=== PATIENT | male | born 1965 | race Two or more races ===

== ENCOUNTER → 2020-09-12 | Outpatient (CLI) | payer BC ==
--- NOTE | 2020-09-12 12:32 | CONS ---
CONSULTATION DATE OF SERVICE: 09/12/2020 This 55-year-old gentleman has been [facility] for possible obstructive sleep apnea-hypopnea syndrome. HISTORY OF PRESENT ILLNESS/SLEEP-WAKE EVALUATION: Patient usual sleep schedule on weekdays from 8 p.m. to 3 a.m.; on weekends from 8:30 or 9 p.m. to 5 or 6 a.m. Usually no problems with falling asleep. No TV in bedroom. He sleeps on the side position with very loud snoring and witnessed episodes of stopped breathing during sleep by his . He wakes up from sleep with a choking, nocturia, dry mouth, gasping for air 4 times at least. Positive history of restless legs while falling asleep and symptoms of restless legs very significant, according to patient. In the morning he wakes up tired, has difficulties to pay attention, falling asleep during the day, worries about his sleep, has problems with memory, concentration, irritability, depression, anxiety, sexual dysfunction. [place] Sleepiness Scale significantly increased to 18. He takes one nap at 1 p.m., usually no vivid dreams during naps. He does not feel refreshed after nap. Questionable history of hypnagogic hallucinations at night. PAST MEDICAL HISTORY: History of episodes of depression and anxiety, acid reflux. Recently the patient was told about possibly hypothyroidism, carpal tunnel syndrome, right hand arthritis. PAST SURGICAL HISTORY: Surgery on right side for carpal tunnel syndrome. FAMILY HISTORY: Hypertension, heart problems, stroke. SOCIAL HISTORY: Negative for smoking or using alcohol. REVIEW OF SYSTEMS: Multiple awakenings from sleep, significant excessive daytime sleepiness, restless leg symptoms. PHYSICAL EXAMINATION: GENERAL: gentleman without distress. VITAL SIGNS: BP 154/92, HR 84, RR 15, height 5 feet 9 inches, weight 291.2, temperature 97.6, oxygen saturation on room air 94%. HEENT: PERRLA, EOMI. Oropharynx extremely low position of soft palate. Mallampati 4. Extremely wide neck 21 inches in circumference. NECK: Supple, no JVD. Thyroid is not palpable. LUNGS: Clear to percussion and to auscultation. Good air exchange. No wheezing or rhonchi. HEART: S1, S2 regular. No murmurs, gallops, or rubs. ABDOMEN: Obese. EXTREMITIES: No clubbing or cyanosis. IT SECURITY ARCHITECT: Awake, alert, and oriented X3. Cranial nerves 2 to 7 intact. There is no fasciculation or atrophy. noted. No focal deficits observed. IMPRESSION: 1. Loud snoring, witnessed episodes of stopped breathing during the sleep, extremely low position of soft palate, Mallampati IV, extremely wide neck 21 inches, sleepiness, obstructive sleep apnea-hypopnea syndrome. Will be on control with CPAP. We will re-evaluate patient symptoms of excessive sleepiness for differential diagnosis with additional diagnosis of narcolepsy without cataplexy. 2. Obesity, body mass index 42.93. 3. Significant excessive daytime sleepiness. [place] Sleepiness Scale of 18. Question of positive history of hypnagogic hallucinations. 4. History of episodes of depression and anxiety. 5. Right hand arthritis. 6. Acid reflux. 7. History of significant restless leg symptoms. 8. History of hypothyroidism. 9. Status post surgery on right hand for carpal tunnel syndrome. PLAN: 1. Home sleep apnea test for evaluation of patient's breathing during sleep. 2. CPAP/BiPAP titration if sleep study confirms obstructive sleep apnea-hypopnea syndrome. 3. Preferable position during sleep on the side. 4. No driving if patient feels any sleepiness. 5. I will see patient for follow up visit to explain results of testing and following plan. 6. Monitoring of blood pressure, low-sodium diet. 7. Please check iron profile, including ferritin level. Low level of iron may increase risk for restless legs and periodic limb movements. The patient may need additional evaluation by polysomnogram for restless legs and possibly leg movements in the future depending from clinical picture while he will be on treatment with CPAP. Thank you very much for referring this patient for consultation. Sincerely, Sonu Giraldo MD, PhD, FAASM Diplomat of [place] [employer] [place] [employer] Technical Program Manager of [facility] [place] MMODL / IJN: [id number] /
== END ==
LOC: SLEEP 10:55
PROVIDERS: ATTEND Internal Medicine
DX: G47.33 Obstructive sleep apnea (adult) (pediatric) (principal); E66.9 Obesity, unspecified; Z68.41 Body mass index [BMI] 40.0-44.9, adult; G47.10 Hypersomnia, unspecified; M19.041 Primary osteoarthritis, right hand; K21.9 Gastro-esophageal reflux disease without esophagitis; Z87.39 Personal history of other diseases of the musculoskeletal system and connective tissue; Z86.39 Personal history of other endocrine, nutritional and metabolic disease
CPT/HCPCS: 99211

== ENCOUNTER → 2020-11-08 | Outpatient (CLI) | payer BC ==
[2020-11-09 00:09] LABS: African American GFR (CKD) 97.1 (60.0-200.0); Albumin 4.5 g/dL (3.80-4.90); Albumin/Globulin Ratio 2.25 (1.60-3.17); Anion Gap 13.5 mmol/L (4.00-12.00); Calcium 9.2 mg/dL (8.7-10.3); Carbon Dioxide 29.5 mmol/L (21.6-31.8); Chol/HDL Ratio 4.89; LDL Cholesterol,Calculated 146.6 mg/dL (0.0-131.0); Non-African American GFR(CKD) 83.8 (60.0-200.0); Potassium 4.7 mmol/L (3.5-5.5); Prostate Specific Antigen 0.2 ng/mL (0.0-3.5); Total Bilirubin 0.4 mg/dL (0.3-1.2); Total Protein 6.5 g/dL (6.2-8.2); VLDL Calculation 32.4 mg/dL (5.00-40.00)
== END | disposition home or self-care (01) ==
LOC: LABWHC1 10:13
PROVIDERS: ATTEND Internal Medicine
DX: Z00.00 Encounter for general adult medical examination without abnormal findings (principal); N40.1 Benign prostatic hyperplasia with lower urinary tract symptoms; M15.0 Primary generalized (osteo)arthritis
CPT/HCPCS: 36415; 80053; 80061; 84153

== ENCOUNTER 2020-11-26 13:57 | Inpatient (IN) | payer BC ==
[2020-11-26] MEDS ORDERED: SODIUM CHLORIDE 0.9% 500 ML 500 ML IV STA (14:10)
[2020-11-26 14:42] LABS: Basophils # (A) 0.1 k/uL (0-0.2); Basophils % (A) 1 %; Eosinophils # (A) 0.4 k/uL (0-0.7); Eosinophils % (A) 3 %; HCT 45.9 % (39.0-53.0); HGB 15.4 gm/dL (13.0-17.5); Lymphocytes # (A) 1.8 k/uL (1.0-4.8); Lymphocytes % (A) 17 %; MCH 33.2 pg (25.0-35.0); MCHC 33.5 g/dL (31.0-37.0); Mean Platelet Volume 8.1; Monocytes # (A) 0.7 k/uL (0-1.0); Monocytes % (A) 7 %; Neutrophils # (A) 7.7 k/uL (1.3-7.7); Neutrophils % (A) 72 %; Platelet Count 240 k/uL (150-450); RBC 4.64 m/uL (4.30-5.90); RDW 13.5 % (11.5-15.5); WBC 10.7 k/uL (3.8-10.6)
--- NOTE | 2020-11-26 14:53 | ED ---
General Adult HPI - General Chief complaint: Syncope Stated complaint: syncope Time Seen by Provider: 11/26/20 14:01 Source: patient, EMS Mode of arrival: EMS Limitations: no limitations - History of Present Illness Initial comments: Patient is a 55-year-old male with history of arthritis, obstructive sleep apnea, presenting to the emergency department via EMS after having a syncopal event at his PCPs office. Patient states he was at his doctor's office today secondary to falling on his abdomen yesterday. Patient states he was attempting to start a dirt bike when his foot slipped and he fell forward, his belly landed on a trailer that was close to him. He has been having intermittent abdominal pain since yesterday. He states he did not feel dizzy or lightheaded at his doctor's office today. He does not remember losing consciousness. According to witnesses he was unconscious for about 3 minutes. He did not hit his head. Patient denies having any other complaints of pain other than some left lower quadrant abdominal pain where he fell. He denies any chest pain or shortness of breath. He denies any fevers or chills. He states he's been eating and drinking as normal. He denies any nausea or vomiting, no diarrhea. He denies having a cardiac history. He denies being a smoker, does not drink alcohol or any other drug use. He has no further complaints at this time. Upon arrival to the ER, he is at 93% on room air, rest of vitals are normal. - Related Data Home Medications Medication Instructions Recorded Confirmed Diclofenac Sodium [Voltaren] 75 mg PO BID PRN 11/26/20 11/26/20 LORazepam [Ativan] 1 mg PO DAILY PRN 11/26/20 11/26/20 cloNIDine HCL 0.1 mg PO BID 11/26/20 11/26/20 Allergies Allergy/AdvReac Type Severity Reaction Status Date / Time No Known Allergies Allergy Verified 11/26/20 16:21 Review of Systems ROS Statement: Those systems with pertinent positive or pertinent negative responses have been documented in the HPI. ROS Other: All systems not noted in ROS Statement are negative. Past Medical History Additional Past Medical History / Comment(s): ARTHRITIS Past Surgical History: Orthopedic Surgery Past Psychological History: Anxiety Smoking Status: Never smoker Past Alcohol Use History: None Reported Past Drug Use History: None Reported General Exam - General Exam Comments Initial Comments: GENERAL: Patient is well-developed and well-nourished. Patient is nontoxic and in no acute distress. HEAD: Atraumatic, normocephalic. EYES: Pupils equal round and reactive to light, extraocular movements intact, sclera anicteric, conjunctiva are normal. Eyelids were unremarkable. ENT: TMs normal, nares patent, oropharynx clear without exudates. Moist mucous memb ranes. NECK: Normal range of motion, supple without lymphadenopathy or JVD. LUNGS: Unlabored respirations. Breath sounds clear to auscultation bilaterally and equal. No wheezes rales or rhonchi. HEART: Regular rate and rhythm without murmurs, rubs or gallops. ABDOMEN: Patient's abdomen is large, he does have some bruising noted to the left lower quadrant when he fell yesterday, he has painful in this area. No other areas of pain noted. Normoactive bowel sounds. No guarding, no rebound. No masses appreciated. : Deferred MUSCULOSKELETAL: Normal extremities with adequate strength and normal range of motion, no pitting or edema. No clubbing or cyanosis. NEUROLOGICAL: Patient is alert and oriented x 3. Motor and sensory are also intact. Cranial nerves II through XII grossly intact. Symmetrical smile. Normal speech, normal gait. PSYCH: Normal mood, normal affect. SKIN: Warm, Dry, normal turgor, no rashes or lesions noted. Limitations: no limitations Course Vital Signs 11/26/20 11/26/20 11/26/20 13:59 15:39 15:40 Temperature 98 F Pulse Rate 96 Pulse Rate [ 94 93 Life Claims Examiner ] Respiratory 18 18 18 Rate Blood Pressure 139/87 Blood Pressure 149/94 [Right Arm Sitting] Blood Pressure [Right Arm Standing] Blood Pressure 143/99 [Right Arm Supine] O2 Sat by Pulse 93 L 92 L 93 L Oximetry 11/26/20 15:41 Temperature Pulse Rate Pulse Rate [ 103 H Life Claims Examiner ] Respiratory 18 Rate Blood Pressure Blood Pressure [Right Arm Sitting] Blood Pressure 134/86 [Right Arm Standing] Blood Pressure [Right Arm Supine] O2 Sat by Pulse 93 L Oximetry EKG Findings - EKG Comments: EKG Findings:: Normal sinus rhythm, incomplete RBBB, T-wave abnormalities in leads 2, 3, aVF and V3 through V6. There are no prior EKGs to compare. Ventricular rate 97, ME 178, QT 378. EKG reviewed by Dr. Cantu. Medical Decision Making - Medical Decision Making He is a 55-year-old male with history of obstructive sleep apnea, presenting after having a 3 minute syncopal event at his doctor's office today. No fevers, he denies any dizziness or lightheadedness. He does have some mild lower abdominal pain after falling on his trailer yesterday. No chest pain. He denies any shortness of breath. Patient has been standing at 93% on room air, he states he does have a CPAP but does not use this. Patient's labs are stable, troponin is 0.013. Rapid Covid is negative. CT of the abdomen and pelvis shows no acute abnormality, chest x-ray is normal. Patient's EKG had many T-wave inversions, he had no previous EKG to compare to. Given patient's syncopal event today, severe obstructive sleep apnea and EKG changes, recommended admission for cardiac consult. Patient was accepted by Dr. Mckeon. Cardiac consult. Patient is in agreement with this plan of care. Case discussed with Dr. Cantu. - Lab Data Result diagrams: 11/26/20 14:33 11/26/20 15:21 Lab Results 11/26/20 11/26/20 11/26/20 Range/Units 14:33 14:33 15:21 WBC 10.7 H (3.8-10.6) k/uL RBC 4.64 (4.30-5.90) m/uL Hgb 15.4 (13.0-17.5) gm/dL Hct 45.9 (39.0-53.0) % MCV 99.0 (80.0-100.0) fL MCH 33.2 (25.0-35.0) pg MCHC 33.5 (31.0-37.0) g/dL RDW 13.5 (11.5-15.5) % Plt Count 240 (150-450) k/uL MPV 8.1 Neutrophils % 72 % Lymphocytes % 17 % Monocytes % 7 % Eosinophils % 3 % Basophils % 1 % Neutrophils # 7.7 (1.3-7.7) k/uL Lymphocytes # 1.8 (1.0-4.8) k/uL Monocytes # 0.7 (0-1.0) k/uL Eosinophils # 0.4 (0-0.7) k/uL Basophils # 0.1 (0-0.2) k/uL PT 10.2 (9.0-12.0) sec INR 0.9 (<1.2) APTT 23.4 (22.0-30.0) sec Sodium 137 (137-145) mmol/L Potassium 4.1 (3.5-5.1) mmol/L Chloride 99 (98-107) mmol/L Carbon Dioxide 31 H (22-30) mmol/L Anion Gap 7 mmol/L BUN 18 (9-20) mg/dL Creatinine 0.92 (0.66-1.25) mg/dL Est GFR (CKD-EPI)AfAm >90 (>60 ml/min/1.73 sqM) Est GFR (CKD-EPI)NonAf >90 (>60 ml/min/1.73 sqM) Glucose 86 (74-99) mg/dL Calcium 8.6 (8.4-10.2) mg/dL Total Bilirubin 0.4 (0.2-1.3) mg/dL AST 25 (17-59) U/L ALT 17 (4-49) U/L Alkaline Phosphatase 77 (38-126) U/L Troponin I (0.000-0.034) ng/mL Total Protein 6.1 L (6.3-8.2) g/dL Albumin 3.7 (3.5-5.0) g/dL Coronavirus (PCR) (Not Detectd) 11/26/20 11/26/20 Range/Units 15:21 15:44 WBC (3.8-10.6) k/uL RBC (4.30-5.90) m/uL Hgb (13.0-17.5) gm/dL Hct (39.0-53.0) % MCV (80.0-100.0) fL MCH (25.0-35.0) pg MCHC (31.0-37.0) g/dL RDW (11.5-15.5) % Plt Count (150-450) k/uL MPV Neutrophils % % Lymphocytes % % Monocytes % % Eosinophils % % Basophils % % Neutrophils # (1.3-7.7) k/uL Lymphocytes # (1.0-4.8) k/uL Monocytes # (0-1.0) k/uL Eosinophils # (0-0.7) k/uL Basophils # (0-0.2) k/uL PT (9.0-12.0) sec INR (<1.2) APTT (22.0-30.0) sec Sodium (137-145) mmol/L Potassium (3.5-5.1) mmol/L Chloride (98-107) mmol/L Carbon Dioxide (22-30) mmol/L Anion Gap mmol/L BUN (9-20) mg/dL Creatinine (0.66-1.25) mg/dL Est GFR (CKD-EPI)AfAm (>60 ml/min/1.73 sqM) Est GFR (CKD-EPI)NonAf (>60 ml/min/1.73 sqM) Glucose (74-99) mg/dL Calcium (8.4-10.2) mg/dL Total Bilirubin (0.2-1.3) mg/dL AST (17-59) U/L ALT (4-49) U/L Alkaline Phosphatase (38-126) U/L Troponin I 0.013 (0.000-0.034) ng/mL Total Protein (6.3-8.2) g/dL Albumin (3.5-5.0) g/dL Coronavirus (PCR) Not Detected (Not Detectd) Disposition Clinical Impression: Syncope, EKG abnormalities, FAY (obstructive sleep apnea) Disposition: ADMITTED IP TO THIS [facility] Condition: Stable Is patient prescribed a controlled substance at d/c from ED?: No Referrals: Leah Reeves MD [Primary Care Provider] - 1-2 days Decision Date: 11/26/20 Decision Time: 16:27
[2020-11-26 15:16] LABS: INR 0.9 (<1.2); Partial Thromboplastin Time 23.4 sec (22.0-30.0); Prothrombin Time 10.2 sec (9.0-12.0)
[2020-11-26] MEDS ORDERED: KETOROLAC 15 MG/ML 1 ML VIAL IVP STA (15:19)
--- NOTE | 2020-11-26 15:45 | CT ---
EXAMINATION TYPE: CT abdomen pelvis w con DATE OF EXAM: 11/26/2020 COMPARISON: None. HISTORY: Left sided abdominal bruising from fall. CT DLP: 2648.5 mGycm, Automated Exposure Control for Dose Reduction was Utilized. CONTRAST: CT scan of the abdomen and pelvis is performed without oral but with IV Contrast, patient injected wi th 100 mL of Isovue 300. FINDINGS: LUNG BASES: Suspect some right-sided gynecomastia partially imaged on the most superior axial images. There is prominent mid to lower thoracic right sided 1.4 x 0.8 cm nodule or lymph node axial image 3 noted. Consider nonemergent follow-up ultrasound evaluation. LIVER/GB: No significant abnormality is appreciated. PANCREAS: No significant abnormality is seen. SPLEEN: No significant abnormality is seen. ADRENALS: No significant abnormality is seen. KIDNEYS: Accessory left renal artery. BOWEL: No significant abnormality is seen. PROSTATE/SEMINAL VESICLES: No gross abnormality seen. LYMPH NODES: No greater than 1cm abdominal or pelvic lymph nodes are appreciated. OSSEOUS STRUCTURES: Vacuum disc phenomenon with mild to moderate disc space narrowing L4-L5 and L5-S1 levels. OTHER: Moderate sized umbilical hernia containing fat and tiny mesenteric vessel. Mild calcified plaq ue of the aorta extends into branch vessels IMPRESSION: No acute posttraumatic finding.
[2020-11-26 15:53] LABS: ALT 17 U/L (4-49); AST 25 U/L (17-59); African American GFR (CKD) >90 (>60 ml/min/1.73 sqM); Albumin 3.7 g/dL (3.5-5.0); Alkaline Phosphatase 77 U/L (38-126); Anion Gap 7 mmol/L; Blood Urea Nitrogen 18 mg/dL (9-20); Calcium 8.6 mg/dL (8.4-10.2); Carbon Dioxide 31 mmol/L (22-30); Chloride 99 mmol/L (98-107); Glucose 86 mg/dL (74-99); Non-African American GFR(CKD) >90 (>60 ml/min/1.73 sqM); Potassium 4.1 mmol/L (3.5-5.1); Sodium 137 mmol/L (137-145); Total Bilirubin 0.4 mg/dL (0.2-1.3); Total Protein 6.1 g/dL (6.3-8.2)
--- NOTE | 2020-11-26 15:54 | XR ---
EXAMINATION TYPE: XR chest 2V DATE OF EXAM: 11/26/2020 COMPARISON: NONE HISTORY: Syncope TECHNIQUE: Frontal and lateral views of the chest are obtained. FINDINGS: There is no focal air space opacity, pleural effusion, or pneumothorax seen. The cardiac silhouette size is within normal limits. There are overlying leads. The osseous structures are intac t. IMPRESSION: No acute cardiopulmonary process.
[2020-11-26] MEDS ORDERED: MORPHINE SULFATE 2 MG/ML SYRINGE IVP ONE (16:02)
[2020-11-26] MEDS ORDERED: ACETAMINOPHEN TAB 325 MG TAB PO PRN (16:12)
[2020-11-26] MEDS ORDERED: IBUPROFEN 400 MG TAB PO PRN (16:12)
[2020-11-26] MEDS ORDERED: ONDANSETRON 4 MG/2 ML VIAL IVP PRN (16:12)
[2020-11-26] MEDS ORDERED: NALOXONE 0.4 MG/ML 1 ML VIAL IV PRN (16:12)
--- NOTE | 2020-11-26 19:39 | P.HPIM ---
History of Present Illness This is a pleasant 55 years old male with no significant past medical history presents with some papillary-like clinical picture. 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 He decided to go and visit his PCP today Dr. Reilly while he was sitting in the chair he passed out for about 5 minutes, he could not remember but we can often people around him trying to help him. Associated with sweating but there was no seizure-like activity or shakiness. No postictal confusion. No urine or bowel incontinence, no tongue biting. Also there is no associated chest pain, palpitations or dizziness. Patient denies abdominal pain other than one mentioned above from trauma. No nausea vomiting or change in urine or bowel habits. No dysuria. He denies smoking, alcohol or illicit drugs He follows up with Dr. Reilly only On admission his mildly hypoxic with oxygen saturation 92% on room air, slightly tachycardic at 93. Leukocytosis slightly up at 10.7, and BMP showing high carbon dioxide 31. Rest of labs are unremarkable. Running 2 are negative with 0.013 and 0.012. Cordarone over as not detected EKG showed normal sinus rhythm with incomplete right bundle branch block, QTC of 480, consider anterolateral ischemia Chest x-ray: No acute abnormality CT of the abdomen and pelvis: No acute posttraumatic findings In the emergency room patient received Toradol, started on ibuprofen and morphine. Also received 500 mL of normal saline Patient is admitted to the general medical floor with cardiology team been consulted Review of Systems CONSTITUTIONAL: No fever, no malaise, no fatigue. HEENT: No recent visual problems or hearing problems. Denied any sore throat. CARDIOVASCULAR: No orthopnea, PND, no palpitations, no syncope. PULMONARY: No shortness of breath, no cough, no hemoptysis. GASTROINTESTINAL: No diarrhea, no nausea, no vomiting, no abdominal pain. Normoactive bowel sounds. NEUROLOGICAL: No headaches, no weakness, no numbness. HEMATOLOGICAL: Denies any bleeding or petechiae. GENITOURINARY: Denies any burning micturition, frequency, or urgency. MUSCULOSKELETAL/RHEUMATOLOGICAL: Denies any joint pain, swelling, or any muscle pain. ENDOCRINE: Denies any polyuria or polydipsia. Past Medical History Additional Past Medical History / Comment(s): ARTHRITIS Past Surgical History: Orthopedic Surgery Past Psychological History: Anxiety Smoking Status: Never smoker Past Alcohol Use History: None Reported Past Drug Use History: None Reported Medications and Allergies Home Medications Medication Instructions Recorded Confirmed Type Diclofenac Sodium [Voltaren] 75 mg PO BID PRN 11/26/20 11/26/20 History LORazepam [Ativan] 1 mg PO DAILY PRN 11/26/20 11/26/20 History cloNIDine HCL 0.1 mg PO BID 11/26/20 11/26/20 History Allergies Allergy/AdvReac Type Severity Reaction Status Date / Time No Known Allergies Allergy Verified 11/26/20 16:21 Physical Exam Vitals: Vital Signs Temp Pulse Pulse Resp BP BP BP 11/26/20 18:54 98 F 100 18 134/86 11/26/20 18:32 100 18 134/86 11/26/20 15:41 103 H 18 134/86 11/26/20 15:40 93 18 149/94 11/26/20 15:39 94 18 11/26/20 13:59 98 F 96 18 139/87 BP Pulse Ox 11/26/20 18:54 97 11/26/20 18:32 97 11/26/20 15:41 93 L 11/26/20 15:40 93 L 11/26/20 15:39 143/99 92 L 11/26/20 13:59 93 L Intake and Output 11/26/20 11/26/20 11/26/20 06:59 14:59 22:59 Other: Weight 136.078 kg GENERAL: The patient is alert and oriented x3, not in any acute distress. Well developed, well nourished. HEENT: Pupils are round and equally reacting to light. EOMI. No scleral icterus. No conjunctival pallor. Normocephalic, atraumatic. No pharyngeal erythema. No thyromegaly. CARDIOVASCULAR: S1 and S2 present. No murmurs, rubs, or gallops. PULMONARY: Chest is clear to auscultation, no wheezing or crackles. ABDOMEN: Soft, nontender, nondistended, normoactive bowel sounds. No palpable organomegaly. MUSCULOSKELETAL: No joint swelling or deformity. EXTREMITIES: No cyanosis, clubbing, or pedal edema. NEUROLOGICAL: Gross neurological examination did not reveal any focal deficits. SKIN: No rashes. No petechiae Results CBC & Chem 7: 11/26/20 14:33 11/26/20 15:21 Labs: Abnormal Lab Results - Last 24 Hours (Table) 11/26/20 11/26/20 Range/Units 14:33 15:21 WBC 10.7 H (3.8-10.6) k/uL Carbon Dioxide 31 H (22-30) mmol/L Total Protein 6.1 L (6.3-8.2) g/dL Assessment and Plan Assessment: Syncope, rule out cardiac causes and review of EKG changes with anterior lateral ischemia Acute hypoxic respiratory failure, rule out hypercapnic failure, obstructive sleep apnea or obesity hypoventilation syndrome Morbid obesity with BMI of 44.3 Fall with trauma to the left lower quadrant of the abdomen Hypertension Plan: This is a pleasant 55 years old male who presents with syncope. Rule out cardiac causes. Cardiology team were consulted, check echocardiogram, serial troponin. Start baby aspirin. Check orthostatic vitals as patient was working in regards an outside in hot water Change clonidine to metoprolol Check ABG, consider consult pulmonary service which could be done as inpatient or outpatient. Patient will need outpatient pulmonary function test Labs and medication were reviewed.. Continue same treatment. Continue with symptomatic treatment. Resume home medication. Monitor lytes and vitals. DVT and GI prophylaxis. Further recommendationsas per clinical course of the patient DVT prophylaxis: Subcutaneous heparin GI Prophylaxis: Pepcid PT/OT: Pending Prognosis is guarded
[2020-11-26] MEDS: MORPHINE SULFATE 4 MG/ML SYRINGE IVP PRN (20:18)
[2020-11-26] MEDS: METOPROLOL TARTRATE 12.5 MG TAB PO SCH (20:19)
[2020-11-26] MEDS: ASPIRIN 81 MG PO SCH (20:19)
[2020-11-26] MEDS: SODIUM CHLORIDE 0.9% 1,000 ML IV SCH (20:19)
[2020-11-26 21:39] LABS: ABG Base Excess 12.6 mmol/L; ABG HCO3 39 mmol/L (21-25); ABG Oxygen Saturation 94.3 % (94-97); ABG PO2 78 mmHg (83-108); ABG TCO2 41 mmol/L (19-24); Allen Test Performed? Yes
[2020-11-26 21:44] LABS: ABG PCO2 79 mmHg (35-45)
[2020-11-26] MEDS ORDERED: IPRATROPIUM-ALBUTEROL 3 ML NEB INHALATION PRN (23:29)
[2020-11-27 06:22] LABS: Appearance,Urine Clear (Clear); Bilirubin,Urine Negative (Negative); Blood,Urine Negative (Negative); Color,Urine Yellow; Glucose,Urine (UA) Negative (Negative); Ketones,Urine Negative (Negative); Leukocyte Esterase,Urine Negative (Negative); Nitrite,Urine Negative (Negative); PH, Urine 5.5 (5.0-8.0); Protein,Urine Negative (Negative); Specific Gravity,Urine 1.031 (1.001-1.035); Urobilinogen,Urine <2.0 mg/dL (<2.0)
[2020-11-27] MEDS: MORPHINE SULFATE 4 MG/ML SYRINGE IVP PRN ×3 (06:29→19:22)
[2020-11-27 08:05] LABS: Basophils # (A) 0.1 k/uL (0-0.2); Basophils % (A) 1 %; Eosinophils # (A) 0.3 k/uL (0-0.7); Eosinophils % (A) 3 %; HCT 48.9 % (39.0-53.0); HGB 15.9 gm/dL (13.0-17.5); Lymphocytes # (A) 1.5 k/uL (1.0-4.8); Lymphocytes % (A) 17 %; MCH 32.9 pg (25.0-35.0); MCHC 32.6 g/dL (31.0-37.0); MCV 100.9 fL (80.0-100.0); Macrocytosis Slight; Monocytes # (A) 0.5 k/uL (0-1.0); Monocytes % (A) 6 %; Neutrophils # (A) 6.5 k/uL (1.3-7.7); Neutrophils % (A) 73 %; Platelet Count 208 k/uL (150-450); RBC 4.85 m/uL (4.30-5.90); RDW 13.5 % (11.5-15.5)
[2020-11-27 08:10] LABS: African American GFR (CKD) >90 (>60 ml/min/1.73 sqM); Anion Gap 3 mmol/L; Blood Urea Nitrogen 17 mg/dL (9-20); Calcium 8.5 mg/dL (8.4-10.2); Carbon Dioxide 34 mmol/L (22-30); Chloride 102 mmol/L (98-107); Glucose 101 mg/dL (74-99); Non-African American GFR(CKD) >90 (>60 ml/min/1.73 sqM); Potassium 4.5 mmol/L (3.5-5.1); Sodium 139 mmol/L (137-145)
[2020-11-27] MEDS: FAMOTIDINE 20 MG/2 ML VIAL IV SCH ×2 (09:09→20:27)
[2020-11-27] MEDS: HEPARIN SODIUM,PORCINE/PF 5,000 UNIT/0.5 ML SYRINGE SQ SCH ×2 (09:10→20:27)
[2020-11-27] MEDS: ASPIRIN 81 MG PO SCH (09:10)
[2020-11-27] MEDS: SODIUM CHLORIDE 0.9% 1,000 ML IV SCH (09:10)
[2020-11-27] MEDS ORDERED: lisinopriL 10 MG TAB PO SCH (09:45)
[2020-11-27] MEDS: lisinopriL 10 MG TAB PO SCH ×2 (10:02→20:27)
[2020-11-27] MEDS: METOPROLOL TARTRATE 12.5 MG TAB PO SCH (10:03)
--- NOTE | 2020-11-27 10:52 | P.CRDCN ---
History of Present Illness History of present illness: HISTORY OF PRESENTING ILLNESS This is a pleasant 55-year-old male past medical history significant for hypertension, obstructive sleep apnea. 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 We have been asked to see in consultation for possible syncope, EKG changes. Patient states yesterday he tripped and fell on his left side of his abdomen, and has been having small area of redness, ecchymosis with abrasion and pain as left lower quadrant of his abdomen. Yesterday he went to his PCP office Dr. Reeves he was sitting in his chair and could not remember what happened but remembers waking up in the ambulance. He apparently was sitting on a chair and passed out. He denies chest pain, palpitaitons, dizziness, lightheadedness, seizures, no loss of bladder or bowel, no tongue biting. He denies tobacco use, alcohol use, illicit drug use. He denies history of diabetes, [place], stroke. On admission patient's blood pressure 139/87, heart rate 96, afebrile, 92% on room air was placed on 2 L nasal cannula. Orthostatic vital signs were completed yesterday around 7:30 PM which were negative. DIAGNOSTICS EKG reveals sinus rhythm, heart rate 97, T wave inversions in inferior leads, and anterior leads. CT of the abdomen and pelvis with no acute posttraumatic finding. Prominent mid to low thoracic right sided nodule lymph node noted, moderate size umbilical hernia containing fat and tiny mesenteric vessel noted. Telemetry tracings indicate patient in sinus mechanism, heart rate 80s to 90s, occasional low 100s. Does have an episode of bradycardia in the night around 11:30 PM heart rate in the 40s. Chest xray no acute cardiopulmonary process Laboratory reviewed,Troponin negative x 3, WBC 9, hemoglobin 5.9, platelets 208, sodium 139, potassium 4.5, serum creatinine 0.68, UA negative, Current cardiac medications include clonidine 0.1 mg twice a day, REVIEW OF SYSTEMS At the time of my exam: CONSTITUTIONAL: Denies fever or chills. CARDIOVASCULAR: Denies chest pain, shortness of breath, orthopnea, PND or palpitations. RESPIRATORY: Denies cough. GASTROINTESTINAL:+LLQ abdominal pain Denies diarrhea, constipation, nausea or vomiting. MUSCULOSKELETAL: Denies myalgias. NEUROLOGIC: +syncope Denies numbness, tingling, headacbe or weakness. ENDOCRINE: Denies fatigue, weight change, polydipsia or polyurina. GENITOURINARY: Denies burning, hematuria or urgency with micturation. HEMATOLOGIC: Denies history of anemia or bleeding. PHYSICAL EXAMINATION Blood pressure 128/82 heart rate 86 afebrile and maintaining oxygen saturation 96% on 2 L nasal cannula CONSTITUTIONAL: No apparent distress. HEENT: Head is normocephalic. Pupils are equal, round. Sclerae anicteric. Mucous membranes of the mouth are moist. No JVD. No carotid bruit. CHEST EXAMINATION: Lungs are clear to auscultation. No chest wall tenderness is noted on palpation or with deep breathing. HEART EXAMINATION: Regular rate and rhythm. S1, S2 heard. No murmurs, gallops or rub. ABDOMEN: Tenderness to LLQ with palpation, Soft. Positive bowel sounds. EXTREMITIES: 2+ peripheral pulses, and no calf tenderness. NEUROLOGIC EXAMINATION: Patient is awake, alert and oriented x3. ASSESSMENT Syncope, unclear etiology. Troponin negative x 3 EKG changes not indicative of myocardial infarction, patient with no chest discomfort. Orthostatic vital signs negative Left lower quadrant pain/tenderness s/p fall with trauma on his abdomen Obstructive Sleep Apnea- not on CPAP due to patient with insurance issues not able to complete sleep study appointment Hypertension PLAN Obtain 2D echocardiogram and doppler study to assess cardiac structure and function. Lipid panel and Hemoglobin A1c ordered Recommend stopping clonidine Discontinue metoprolol tartrate Start Lisinopril 10mg BID Recommend patient be set up for a sleep study outpatient for his sleep apnea Follow up with Dr. Turner as an outpatient Thank you kindly for this consultation. Nurse Practitioner note has been reviewed, I agree with a documented findings and plan of care. Patient was seen and examined. Past Medical History Additional Past Medical History / Comment(s): ARTHRITIS History of Any Multi-Drug Resistant Organisms: None Reported Past Surgical History: Orthopedic Surgery Additional Past Surgical History / Comment(s): carpal tunnel release on rt hand 2020 Past Psychological History: Anxiety Smoking Status: Never smoker Past Alcohol Use History: None Reported Past Drug Use History: None Reported Medications and Allergies Home Medications Medication Instructions Recorded Confirmed Type Diclofenac Sodium [Voltaren] 75 mg PO BID PRN 11/26/20 11/26/20 History LORazepam [Ativan] 1 mg PO DAILY PRN 11/26/20 11/26/20 History cloNIDine HCL 0.1 mg PO BID 11/26/20 11/26/20 History Allergies Allergy/AdvReac Type Severity Reaction Status Date / Time No Known Allergies Allergy Verified 11/26/20 16:21 Physical Exam Vitals: Vital Signs Temp Pulse Pulse Pulse Pulse Pulse Pulse 11/27/20 07:46 11/27/20 07:00 98.2 F 86 11/27/20 01:57 11/27/20 00:52 98.1 F 97 11/26/20 20:00 11/26/20 19:39 92 88 88 11/26/20 19:21 98.1 F 98 11/26/20 18:54 98 F 100 11/26/20 18:32 100 11/26/20 15:41 103 H 11/26/20 15:40 93 11/26/20 15:39 94 11/26/20 13:59 98 F 96 Resp BP BP BP BP Pulse Ox 11/27/20 07:46 94 L 11/27/20 07:00 16 128/82 96 11/27/20 01:57 19 11/27/20 00:52 25 H 126/85 87 L 11/26/20 20:00 20 11/26/20 19:39 136/85 136/88 137/85 11/26/20 19:21 22 131/83 95 11/26/20 18:54 18 134/86 97 11/26/20 18:32 18 134/86 97 11/26/20 15:41 18 134/86 93 L 11/26/20 15:40 18 149/94 93 L 11/26/20 15:39 18 143/99 92 L 11/26/20 13:59 18 139/87 93 L Intake and Output 11/26/20 11/27/20 11/27/20 22:59 06:59 14:59 Other: Voiding Method Toilet Toilet Urinal Urinal # Voids 1 2 Weight 136.078 kg Results 11/27/20 07:30 11/27/20 07:30 Cardiac Enzymes 11/26/20 11/26/20 11/26/20 Range/Units 15:21 15:21 17:24 AST 25 (17-59) U/L Troponin I 0.013 0.012 (0.000-0.034) ng/mL 11/26/20 Range/Units 23:02 AST (17-59) U/L Troponin I 0.014 (0.000-0.034) ng/mL Coagulation 11/26/20 Range/Units 14:33 PT 10.2 (9.0-12.0) sec APTT 23.4 (22.0-30.0) sec CBC 11/26/20 11/27/20 Range/Units 14:33 07:30 WBC 10.7 H 9.0 (3.8-10.6) k/uL RBC 4.64 4.85 (4.30-5.90) m/uL Hgb 15.4 15.9 (13.0-17.5) gm/dL Hct 45.9 48.9 (39.0-53.0) % Plt Count 240 208 (150-450) k/uL Comprehensive Metabolic Panel 11/26/20 11/27/20 Range/Units 15:21 07:30 Sodium 137 139 (137-145) mmol/L Potassium 4.1 4.5 (3.5-5.1) mmol/L Chloride 99 102 (98-107) mmol/L Carbon Dioxide 31 H 34 H (22-30) mmol/L BUN 18 17 (9-20) mg/dL Creatinine 0.92 0.68 (0.66-1.25) mg/dL Glucose 86 101 H (74-99) mg/dL Calcium 8.6 8.5 (8.4-10.2) mg/dL AST 25 (17-59) U/L ALT 17 (4-49) U/L Alkaline Phosphatase 77 (38-126) U/L Total Protein 6.1 L (6.3-8.2) g/dL Albumin 3.7 (3.5-5.0) g/dL Current Medications Generic Name Dose Route Start Last Admin Trade Name Freq PRN Reason Stop Dose Admin Acetaminophen 650 mg 11/26/20 16:12 Acetaminophen Tab 325 Mg Tab PO Q6HR PRN Mild Pain or Fever > 100.5 Albuterol/Ipratropium 3 ml 11/26/20 23:29 Ipratropium-Albuterol 3 Ml Neb INHALATION RT-QID PRN Shortness Of Breath Or Wheezing Aspirin 81 mg 11/26/20 19:45 11/27/20 09:10 Aspirin 81 Mg PO 81 mg DAILY ARMANDO Administration Famotidine 20 mg 11/27/20 09:00 11/27/20 09:09 Famotidine 20 Mg/2 Ml Vial IV 20 mg Q12HR ARMANDO Administration Heparin Sodium (Porcine) 5,000 unit 11/27/20 09:00 11/27/20 09:10 Heparin Sodium,Porcine/Pf 5,000 Unit/0.5 Ml Syringe SQ 5,000 unit Q12HR ARMANDO Administration Lisinopril 10 mg 11/27/20 09:45 11/27/20 10:02 Lisinopril 10 Mg Tab PO 10 mg BID ARMANDO Administration Morphine Sulfate 4 mg 11/26/20 18:34 11/27/20 06:29 Morphine Sulfate 4 Mg/Ml Syringe IVP 4 mg Q6HR PRN Administration Pain Naloxone HCl 0.2 mg 11/26/20 16:12 Naloxone 0.4 Mg/Ml 1 Ml Vial IV Q2M PRN Opioid Reversal Ondansetron HCl 4 mg 11/26/20 16:12 Ondansetron 4 Mg/2 Ml Vial IVP Q8HR PRN Nausea And Vomiting Intake and Output 11/26/20 11/27/20 11/27/20 22:59 06:59 14:59 Other: Voiding Method Toilet Toilet Urinal Urinal # Voids 1 2 Weight 136.078 kg 11/27/20 07:30 11/27/20 07:30
--- NOTE | 2020-11-27 11:01 | ECHOF ---
Referral Reason:syncope MEASUREMENTS -------- HEIGHT: 175.3 cm WEIGHT: 136.1 kg BP: 128/82 IVSd: 1.7 cm (0.6 - 1.1) LVIDd: 4.2 cm (3.9 - 5.3) LVPWd: 1.9 cm (0.6 - 1.1) EDV(Teich): 78 ml IVSs: 2.1 cm LVIDs: 2.8 cm LVPWs: 2.5 cm %IVS Thck: 25 % ESV(Teich): 29 ml EF(Teich): 62 % %FS: 33 % SV(Teich): 49 ml Ao Diam: 3.0 cm (2.0 - 3.7) LA Diam: 4.0 cm (2.7 - 3.8) AV Cusp: 2.6 cm (1.5 - 2.6) EPSS: 0.2 cm MV E Jose: 0.61 m/s MV DecT: 269 ms MV Dec Reynolds: 2.3 m/s MV A Jose: 0.73 m/s MV E/A Ratio: 0.84 MV PHT: 78 ms LVOT Vmax: 0.67 m/s LVOT maxP.79 mmHg AV Vmax: 1.11 m/s AV maxP.97 mmHg TR Vmax: 2.44 m/s TR maxP.76 mmHg RAP: 5.00 mmHg RVSP: 28.76 mmHg MV EF SLOPE: 68.18 mm/s (70 - 150) MV EXCURSION: 18.13 mm (> 18.000) FINDINGS -------- Sinus rhythm. This was a technically difficult study with suboptimal views. The left ventricular size is normal. There is moderate concentric left ventricular hypertrophy. O verall left ventricular systolic function is normal with, an EF between 55 - 60 %. The right ventricle is mildly enlarged. The RV was not well visualized. The left atrium is mildly dilated. The right atrium was not well visualized. Interatrial and interventricular septum intact. There is no evidence of aortic regurgitation. There is no evidence of aortic stenosis. No mitral regurgitation. Mild tricuspid regurgitation present. There is no evidence of pulmonary hypertension. The right v entricular systolic pressure, as measured by Doppler, is 28.76mmHg. There is no pulmonic regurgitation present. The aortic root size is normal. IVC Not well visulized. There is no pericardial effusion. xx ml of Lumason was utilized for enhancement of images. CONCLUSIONS -------- 1. The left ventricular size is normal. 2. There is moderate concentric left ventricular hypertrophy. 3. Overall left ventricular systolic function is normal with, an EF between 55 - 60 %. 4. The right ventricle is mildly enlarged. 5. The left atrium is mildly dilated. 6. Mild tricuspid regurgitation present. SKIN CARE SPECIALIST: Zoey Banuelos RDCS
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
--- NOTE | 2020-11-27 14:26 | P.PN ---
Subjective This is a pleasant 55 years old male with no significant past medical history presents with some papillary-like clinical picture. Yesterday patient was working on his coverage when he tripped and fell on his ischemic station and hurt the left side of his abdomen where he has small area of redness and ecchymosis with abrasion but no open wound. He decided to go and visit his PCP today Dr. Reilly while he was sitting in the chair he passed out for about 5 minutes, he could not remember but we can often people around him trying to help him. Associated with sweating but there was no seizure-like activity or shakiness. No postictal confusion. No urine or bowel incontinence, no tongue biting. Also there is no associated chest pain, palpitations or dizziness. Patient denies abdominal pain other than one mentioned above from trauma. No nausea vomiting or change in urine or bowel habits. No dysuria. He denies smoking, alcohol or illicit drugs He follows up with Dr. Reilly only On admission his mildly hypoxic with oxygen saturation 92% on room air, slightly tachycardic at 93. Leukocytosis slightly up at 10.7, and BMP showing high carbon dioxide 31. Rest of labs are unremarkable. Running 2 are negative with 0.013 and 0.012. Cordar one over as not detected EKG showed normal sinus rhythm with incomplete right bundle branch block, QTC of 480, consider anterolateral ischemia Chest x-ray: No acute abnormality CT of the abdomen and pelvis: No acute posttraumatic findings In the emergency room patient received Toradol, started on ibuprofen and morphine. Also received 500 mL of normal saline Patient is admitted to the general medical floor with cardiology team been consulted 11/27/2020 Yesterday patient was started on BiPAP after his BX came back to 7.3 and high pCO2 and 79. Patient tolerated the BiPAP well. This morning he was still having some headache and generalized weakness and he states that he feels these all 4 and currently, also he feels fatigued and tired. Most likely related to his advanced sleep apnea. Cardiac workup was unremarkable, mail carrier and clerk recommended to stop the metoprolol and start lisinopril. Pulmonary input is appreciated and they recommended optimization of his sleep apnea treatment and he is going to need BiPAP to help him overcome his sleep apnea. Possible discharge in 24-48 hour was cleared by other services Objective - Vital Signs Vital signs: Vital Signs Temp 98.2 F 05/25/21 07:00 Pulse 86 11/27/20 07:00 Resp 16 11/27/20 07:00 BP 128/82 11/27/20 07:00 Pulse Ox 94 L 11/27/20 07:46 Intake & Output 11/26/20 11/27/20 11/27/20 18:59 06:59 18:59 Weight 136.078 kg Other: Voiding Method Toilet Urinal # Voids 2 2 - Labs CBC & Chem 7: 11/27/20 07:30 11/27/20 07:30 Labs: Abnormal Lab Results - Last 24 Hours (Table) 11/26/20 11/26/20 11/26/20 Range/Units 14:33 15:21 21:35 WBC 10.7 H (3.8-10.6) k/uL MCV (80.0-100.0) fL ABG pH 7.30 L (7.35-7.45) ABG pCO2 79 H* (35-45) mmHg ABG pO2 78 L (83-108) mmHg ABG HCO3 39 H (21-25) mmol/L ABG Total CO2 41 H (19-24) mmol/L Carbon Dioxide 31 H (22-30) mmol/L Glucose (74-99) mg/dL Total Protein 6.1 L (6.3-8.2) g/dL 11/27/20 11/27/20 Range/Units 07:30 07:30 WBC (3.8-10.6) k/uL MCV 100.9 H (80.0-100.0) fL ABG pH (7.35-7.45) ABG pCO2 (35-45) mmHg ABG pO2 (83-108) mmHg ABG HCO3 (21-25) mmol/L ABG Total CO2 (19-24) mmol/L Carbon Dioxide 34 H (22-30) mmol/L Glucose 101 H (74-99) mg/dL Total Protein (6.3-8.2) g/dL Assessment and Plan Assessment: Syncope, related to his sleep apnea Acute hypoxic respiratory failure, rule out hypercapnic failure, obstructive sleep apnea or obesity hypoventilation syndrome Morbid obesity with BMI of 44.3 Fall with trauma to the left lower quadrant of the abdomen Hypertension Plan: This is a pleasant 55 years old male who presents with syncope. Rule out cardiac causes. Cardiology team were consulted, check echocardiogram, . Start baby aspirin. Continue clonidine and metoprolol. Start lisinopril per mail carrier and clerk Labs and medication were reviewed.. Continue same treatment. Continue with symptomatic treatment. Resume home medication. Monitor lytes and vitals. DVT and GI prophylaxis. Further recommendationsas per clinical course of the patient DVT prophylaxis: Subcutaneous heparin GI Prophylaxis: Pepcid PT/OT: Pending
[2020-11-27 20:33] LABS: Chol/HDL Ratio 4.55; LDL Cholesterol,Calculated 121.4 mg/dL (0.0-131.0); VLDL Calculation 27.6 mg/dL (5.00-40.00)
[2020-11-28] MEDS: ASPIRIN 81 MG PO SCH (08:03)
[2020-11-28] MEDS: HEPARIN SODIUM,PORCINE/PF 5,000 UNIT/0.5 ML SYRINGE SQ SCH ×2 (08:03→19:40)
[2020-11-28] MEDS: lisinopriL 10 MG TAB PO SCH ×2 (08:03→19:40)
[2020-11-28] MEDS: FAMOTIDINE 20 MG/2 ML VIAL IV SCH ×2 (08:03→19:40)
[2020-11-28] MEDS: MORPHINE SULFATE 4 MG/ML SYRINGE IVP PRN ×2 (08:03→19:51)
[2020-11-28] MEDS ORDERED: ALPRAZolam 0.5 MG TAB PO PRN (10:37)
[2020-11-28] MEDS ORDERED: ALPRAZolam 0.25 MG TAB PO PRN (10:37)
[2020-11-28] MEDS ORDERED: NITROGLYCERIN SL TABS 0.4 MG TAB SUBLINGUAL PRN (10:37)
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
--- NOTE | 2020-11-28 14:37 | P.PN ---
Subjective HISTORY OF PRESENTING ILLNESS This is a pleasant 55-year-old male past medical history significant for hypertension, obstructive sleep apnea. He does not follow with a well flow operator. We have been asked to see in consultation for possible syncope, EKG changes. Patient states yesterday he tripped and fell on his left side of his abdomen, and has been having small area of redness, ecchymosis with abrasion and pain as left lower quadrant of his abdomen. Yesterday he went to his PCP office Dr. Reeves he was sitting in his chair and could not remember what happened but remembers waking up in the ambulance. He apparently was sitting on a chair and passed out. He denies chest pain, palpitaitons, dizziness, lightheadedness, seizures, no loss of bladder or bowel, no tongue biting. He denies tobacco use, alcohol use, illicit drug use. He denies history of diabetes, LA, stroke. On admission patient's blood pressure 139/87, heart rate 96, afebrile, 92% on room air was placed on 2 L nasal cannula. Orthostatic vital signs were completed yesterday around 7:30 PM which were negative.Current cardiac medications include clonidine 0.1 mg twice a day EKG reveals sinus rhythm, heart rate 97, T wave inversions in inferior leads, and anterior leads. CT of the abdomen and pelvis with no acute posttraumatic finding. Prominent mid to low thoracic right sided nodule lymph node noted, moderate size umbilical hernia containing fat and tiny mesenteric vessel noted. Chest xray no acute cardiopulmonary process 11/28/2020: Patient seen and examined at bedside. No acute distress. He did utilize the ASV mode of BiPAP with an CPAP minimum of 4 maximum of 15, pressure support minimum of 4 with a maximum of 15 and a fullface mask.. Telemetry tracings indicate patient in sinus mechanism, heart rate 80s to 90s, occasional low 100s. No episodes of bradycardia. Laboratory reviewed,Troponin negative x 3, sodium 139, potassium 4.5, serum creatinine 0.68, triglycerides 138, cholesterol 191, LDL 121, HDL 42, TSH within normal limits, hemoglobin A1c 6.0 Echocardiogram revealed left ventricular systolic function normal with an EF between 5560 percent, RV is mildly enlarged, LA is mildly dilated, mild tricuspid regurgitation PHYSICAL EXAMINATION Blood pressure 129/72 heart rate 81 afebrile and maintaining oxygen saturation 96% on 2 L nasal cannula. Requring BiPAP at night. CONSTITUTIONAL: No apparent distress. HEENT: Head is normocephalic. No JVD. No carotid bruit. CHEST EXAMINATION: Lungs are clear to auscultation. HEART EXAMINATION: Regular rate and rhythm. S1, S2 heard. No murmurs, gallops or rub. ABDOMEN: Tenderness to LLQ with palpation, Soft. Positive bowel sounds. EXTREMITIES: 2+ peripheral pulses, and no calf tenderness. NEUROLOGIC EXAMINATION: Patient is awake, alert and oriented x3. ASSESSMENT Syncope, unclear etiology. Troponin negative x 3. Patient with EKG changes. Orthostatic vital signs negative Left lower quadrant pain/tenderness s/p fall with trauma on his abdomen Obstructive Sleep Apnea- not on CPAP due to patient with insurance issues not able to complete sleep study appointment Hypertension PLAN Patient's syncope, unclear etiology. Pulmonary following may have been secondary to a sleep attack related to his symptomatic sleep apnea. Patient's cardiac workup has been negative, but with patient's new EKG changes we recommend a cardiac catheterization for further evaluation and concern for coronary artery disease Plan for cardiac catheterization with Dr. Sinclair tomorrow. I have discussed the risks, benefits and alternative therapies for the above- mentioned procedure and for both sedation/analgesia as well as necessary blood product administration, if indicated, as they pertain to this patient. The patient has indicated understanding and acceptance of the risks and procedures discussed. Questions have been answered appropriately and he is agreeable to move forward with the above-stated procedure. Continue Lisinopril 10mg BID Pulmonary following and Follow up with Dr. Turner as an outpatient when medically cleared for discharge Nurse Practitioner note has been reviewed, I agree with a documented findings and plan of care. Patient was seen and examined. Objective - Vital Signs Vital signs: Vital Signs Temp 97.8 F 11/28/20 07:00 Pulse 81 11/28/20 07:00 Resp 20 11/28/20 07:00 BP 160/81 11/28/20 07:00 Pulse Ox 91 L 11/28/20 07:00 Intake & Output 11/27/20 11/28/20 11/28/20 18:59 06:59 18:59 Intake Total 40 Balance 40 Intake: Oral 40 Other: Voiding Method Toilet Urinal # Voids 2 1 - Labs CBC & Chem 7: 11/27/20 07:30 11/27/20 07:30
[2020-11-28] MEDS: HYDROcodone/APAP 5-325MG 1 EACH TAB PO PRN (15:18)
--- NOTE | 2020-11-28 16:41 | P.PN ---
Subjective This is a pleasant 55 years old male with no significant past medical history presents with some papillary-like clinical picture. Yesterday patient was working on his coverage when he tripped and fell on his ischemic station and hurt the left side of his abdomen where he has small area of redness and ecchymosis with abrasion but no open wound. He decided to go and visit his PCP today Dr. Reilly while he was sitting in the chair he passed out for about 5 minutes, he could not remember but we can often people around him trying to help him. Associated with sweating but there was no seizure-like activity or shakiness. No postictal confusion. No urine or bowel incontinence, no tongue biting. Also there is no associated chest pain, palpitations or dizziness. Patient denies abdominal pain other than one mentioned above from trauma. No nausea vomiting or change in urine or bowel habits. No dysuria. He denies smoking, alcohol or illicit drugs He follows up with Dr. Reilly only On admission his mildly hypoxic with oxygen saturation 92% on room air, slightly tachycardic at 93. Leukocytosis slightly up at 10.7, and BMP showing high carbon dioxide 31. Rest of labs are unremarkable. Running 2 are negative with 0.013 and 0.012. Cordar one over as not detected EKG showed normal sinus rhythm with incomplete right bundle branch block, QTC of 480, consider anterolateral ischemia Chest x-ray: No acute abnormality CT of the abdomen and pelvis: No acute posttraumatic findings In the emergency room patient received Toradol, started on ibuprofen and morphine. Also received 500 mL of normal saline Patient is admitted to the general medical floor with cardiology team been consulted 11/27/2020 Yesterday patient was started on BiPAP after his BX came back to 7.3 and high pCO2 and 79. Patient tolerated the BiPAP well. This morning he was still having some headache and generalized weakness and he states that he feels these all 4 and currently, also he feels fatigued and tired. Most likely related to his advanced sleep apnea. Cardiac workup was unremarkable, slip caster recommended to stop the metoprolol and start lisinopril. Pulmonary input is appreciated and they recommended optimization of his sleep apnea treatment and he is going to need BiPAP to help him overcome his sleep apnea. Possible discharge in 24-48 hour was cleared by other services 11/28/2020 Patient is doing better today, he is awake and alert, no respiratory distress. He was BiPAP during the night but with some difficulties. However he feels better this morning as he states. Hemodynamically stable. WBC back to normal, workup has been unremarkable including TSH, serial troponin and A1c. He is currently saturating 94% on room air-2 L/m. Currently he is on baby aspirin, lisinopril Patient had some EKG changes and slip caster plan for cardiac cath in the morning Zoology Teacher recommended titration study at the sleep center. Objective - Vital Signs Vital signs: Vital Signs Temp 97.8 F 11/28/20 07:00 Pulse 81 11/28/20 07:00 Resp 20 11/28/20 07:00 BP 160/81 11/28/20 07:00 Pulse Ox 91 L 11/28/20 07:00 Intake & Output 11/27/20 11/28/20 11/28/20 18:59 06:59 18:59 Intake Total 40 Balance 40 Intake: Oral 40 Other: Voiding Method Toilet Urinal # Voids 2 1 - Exam -GENERAL: The patient is alert and oriented x3, not in any acute distress. Morbidly -Obese HEENT: Pupils are round and equally reacting to light. EOMI. No scleral icterus. No conjunctival pallor. Normocephalic, atraumatic. No pharyngeal erythema. No thyromegaly. CARDIOVASCULAR: S1 and S2 present. No murmurs, rubs, or gallops. PULMONARY: Chest is clear to auscultation, no wheezing or crackles. ABDOMEN: Soft, nontender, nondistended, normoactive bowel sounds. No palpable organomegaly. MUSCULOSKELETAL: No joint swelling or deformity. EXTREMITIES: No cyanosis, clubbing, or pedal edema. NEUROLOGICAL: Gross neurological examination did not reveal any focal deficits. SKIN: No rashes. no petechiae. - Labs CBC & Chem 7: 11/27/20 07:30 11/27/20 07:30 Assessment and Plan Assessment: Syncope, related to his sleep apnea EKG changes, patient is going for cardiac cath Acute hypoxic respiratory failure, rule out hypercapnic failure, obstructive sleep apnea or obesity hypoventilation syndrome Morbid obesity with BMI of 44.3 Fall with trauma to the left lower quadrant of the abdomen Hypertension Plan: This is a pleasant 55 years old male who presents with syncope. Rule out cardiac causes. Cardiology team were consulted, continue with baby aspirin. Continue lisinopril. Follow-up cardiac cath Patient will need close outpatient pulmonary follow-up for sleep study Labs and medication were reviewed.. Continue same treatment. Continue with symptomatic treatment. Resume home medication. Monitor lytes and vitals. DVT and GI prophylaxis. Further recommendations as per clinical course of the patient DVT prophylaxis: Subcutaneous heparin GI Prophylaxis: Pepcid PT/OT: Pending
[2020-11-29] MEDS ORDERED: SODIUM CHLORIDE 0.9% 1,000 ML in EMPTY BAG 1 BAG IV ONE
[2020-11-29] MEDS: ASPIRIN 81 MG PO SCH (05:57)
[2020-11-29] MEDS: HEPARIN SODIUM,PORCINE/PF 5,000 UNIT/0.5 ML SYRINGE SQ SCH ×2 (05:59→19:25)
[2020-11-29] MEDS: FAMOTIDINE 20 MG/2 ML VIAL IV SCH (05:59)
[2020-11-29] MEDS: lisinopriL 10 MG TAB PO SCH ×2 (05:59→19:25)
[2020-11-29] MEDS ORDERED: ATORVASTATIN 80 MG TAB PO SCH (06:00)
[2020-11-29] MEDS: HYDROcodone/APAP 5-325MG 1 EACH TAB PO PRN ×3 (06:19→19:24)
[2020-11-29] MEDS ORDERED: HEPARIN SODIUM,PORCINE 2,500 UNIT in SODIUM CHLORIDE 0.9% 250 ML IRRIGATION PRN (07:00)
[2020-11-29] MEDS ORDERED: HEPARIN SODIUM,PORCINE 10,000 UNIT in SODIUM CHLORIDE 0.9% 1,000 ML IRRIGATION PRN (07:00)
[2020-11-29] MEDS ORDERED: ASPIRIN 325 MG TAB PO SCH (09:00)
[2020-11-29] MEDS ORDERED: VERAPAMIL 2.5 MG/ML 2 ML AMP ONE (11:02)
[2020-11-29] MEDS ORDERED: HEPARIN SODIUM 1,000 UN/ML (10ML VL) ONE (11:02)
[2020-11-29] MEDS ORDERED: HEPARIN SODIUM,PORCINE 30 ML 30 ML ONE (11:03)
[2020-11-29] MEDS ORDERED: LIDOCAINE 1% INJ 10MG/ML (20 ML MDV) ONE (11:03)
[2020-11-29] MEDS ORDERED: MIDAZOLAM 2 MG/2 ML VIAL IV ONE ×2 (11:20→11:41)
[2020-11-29] MEDS ORDERED: LIDOCAINE 1% INJ 10MG/ML (20 ML MDV) SQ ONE ×2 (11:21→11:35)
[2020-11-29] MEDS ORDERED: SODIUM CHLORIDE 0.9% 1,000 ML IV ONE (11:33)
[2020-11-29] MEDS ORDERED: IOPAMIDOL-370 100ML BTL INJ ONE (11:54)
[2020-11-29] MEDS ORDERED: HYDROmorphone 0.5 MG/0.5 ML SYRINGE IVP ONE (11:54)
[2020-11-29] MEDS ORDERED: SODIUM CHLORIDE 0.9% 1,000 ML IV SCH (12:15)
[2020-11-29 12:31] LABS: African American GFR (CKD) 115.7 (60.0-200.0); Anion Gap 11.7 mmol/L (4.00-12.00); BUN/Creat Ratio 13.75 Ratio (12.00-20.00); Calcium 8.6 mg/dL (8.7-10.3); Carbon Dioxide 33.3 mmol/L (21.6-31.8); Non-African American GFR(CKD) 99.9 (60.0-200.0); Potassium 4.6 mmol/L (3.5-5.5)
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
--- NOTE | 2020-11-29 13:54 | CC ---
CARDIAC CATHETERIZATION REPORT DATE OF SERVICE: 11/29/2020 PROCEDURE: Left heart catheterization and coronary angiography. PERFORMED BY: Dr. Heidi Sinclair. Moderate conscious sedation time was 30 minutes. The patient was administered Versed and Dilaudid. Oxygen saturation, hemodynamics and EKG were monitored closely. CLINICAL INFORMATION: Mr. Mert Palm is a 55-year-old gentleman with history of hypertension, obstructive sleep apnea, who came in with syncope and had shortness of breath with an abnormal EKG with extensive ST and T-wave abnormality. He was advised cardiac cath to rule out obstructive CAD given his presentation. Risks, benefits, options, rationale were explained to the patient. PROCEDURE NOTE: This patient had a somewhat suboptimal Marlon test, but was quite heavy nearly 300 pounds and therefore I attempted from the right radial. The pulse was just +1 and very difficult. I could not get access. Then I switched over to the femoral approach. Using a micro access catheter, I gained access to the right femoral artery and a 6- Ukrainian introducer was placed. Using standard Eliseo catheters I performed coronary angiography and a pigtail catheter was used to check LV pressure but LV gram was not performed. The sheath was taken out and Angio-Seal device applied to secure hemostasis. A pressure bandage was applied to the right radial site also. The patient was sent to the room in stable condition. Results were discussed with him and I also spoke to Dr. Turner. There was no family available. CARDIAC CATHETERIZATION FINDINGS: The left ventricular end-diastolic pressure was elevated at 20 mmHg, but there was no gradient across aortic valve. CORONARY ANGIOGRAPHY FINDINGS: RIGHT CORONARY ARTERY: Technically a large dominant vessel which has no significant obstructive CAD. Distally it bifurcates into a large PDA and PLV, both of which supply a sizable amount of myocardium. There is no significant disease in the dominant RCA. LEFT MAIN CORONARY ARTERY: This is a short patent vessel, free of significant disease that immediately bifurcates into LAD and circumflex. Left main itself is free of significant disease. LEFT ANTERIOR DESCENDING CORONARY ARTERY: Good caliber and good distribution vessel that extends along the anterior wall giving off septal and diagonal branches. The LAD gives off diagonal branches proximally and in the midportion and also several septal branches. It curves over the apex to supply the inferoapical portion of left ventricle. Distally, there is a small branch that goes over the apex. There is no significant disease in the entire LAD system. There are only minor irregularities noted. LEFT POSTERIOR CIRCUMFLEX CORONARY ARTERY: This is a good caliber, good distribution vessel that gives off 2 obtuse marginals, both of which are of good size and then continues distally as a posterolateral branch. There are minor irregularities but no significant obstructive disease is noted in the circumflex system. LEFT VENTRICULOGRAM: Left ventriculogram was not performed. FINAL IMPRESSION: This patient has a right dominant system, no significant obstructive coronary artery disease, elevated filling pressures, but no gradient across aortic valve. RECOMMENDATIONS: Findings were discussed with the patient. No family was available. I also spoke to Dr. Turner regarding the findings. The patient may have some diastolic heart failure and sleep apnea. No obstructive coronary artery disease noted. Will continue medical therapy and risk factor modification and probably will require a CPAP as soon as the sleep study is completed. MMODL / IJN: [id number] /
[2020-11-29] MEDS: FAMOTIDINE 20 MG TAB PO SCH (19:24)
[2020-11-29] MEDS ORDERED: ATORVASTATIN 20 MG TAB PO SCH (21:00)
--- NOTE | 2020-11-29 22:39 | P.PN ---
Subjective This is a pleasant 55 years old male with no significant past medical history presents with some papillary-like clinical picture. Yesterday patient was working on his coverage when he tripped and fell on his ischemic station and hurt the left side of his abdomen where he has small area of redness and ecchymosis with abrasion but no open wound. He decided to go and visit his PCP today Dr. Reilly while he was sitting in the chair he passed out for about 5 minutes, he could not remember but we can often people around him trying to help him. Associated with sweating but there was no seizure-like activity or shakiness. No postictal confusion. No urine or bowel incontinence, no tongue biting. Also there is no associated chest pain, palpitations or dizziness. Patient denies abdominal pain other than one mentioned above from trauma. No nausea vomiting or change in urine or bowel habits. No dysuria. He denies smoking, alcohol or illicit drugs He follows up with Dr. Reilly only On admission his mildly hypoxic with oxygen saturation 92% on room air, slightly tachycardic at 93. Leukocytosis slightly up at 10.7, and BMP showing high carbon dioxide 31. Rest of labs are unremarkable. Running 2 are negative with 0.013 and 0.012. Cordar one over as not detected EKG showed normal sinus rhythm with incomplete right bundle branch block, QTC of 480, consider anterolateral ischemia Chest x-ray: No acute abnormality CT of the abdomen and pelvis: No acute posttraumatic findings In the emergency room patient received Toradol, started on ibuprofen and morphine. Also received 500 mL of normal saline Patient is admitted to the general medical floor with cardiology team been consulted 11/27/2020 Yesterday patient was started on BiPAP after his BX came back to 7.3 and high pCO2 and 79. Patient tolerated the BiPAP well. This morning he was still having some headache and generalized weakness and he states that he feels these all 4 and currently, also he feels fatigued and tired. Most likely related to his advanced sleep apnea. Cardiac workup was unremarkable, clay grinder recommended to stop the metoprolol and start lisinopril. Pulmonary input is appreciated and they recommended optimization of his sleep apnea treatment and he is going to need BiPAP to help him overcome his sleep apnea. Possible discharge in 24-48 hour was cleared by other services 11/28/2020 Patient is doing better today, he is awake and alert, no respiratory distress. He was BiPAP during the night but with some difficulties. However he feels better this morning as he states. Hemodynamically stable. WBC back to normal, workup has been unremarkable including TSH, serial troponin and A1c. He is currently saturating 94% on room air-2 L/m. Currently he is on baby aspirin, lisinopril Patient had some EKG changes and clay grinder plan for cardiac cath in the morning Molder Hand recommended titration study at the sleep center. 11/29/2020 Patient had normal cardiac cath today Pulmonary team cleared The patient for discharge and close outpatient follow-up Continue with BiPAP Objective - Vital Signs Vital signs: Vital Signs Temp 98.7 F 11/29/20 14:25 Pulse 89 11/29/20 14:25 Resp 19 11/29/20 14:25 BP 148/83 11/29/20 14:25 Pulse Ox 93 L 11/29/20 14:25 Intake & Output 11/28/20 11/29/20 11/29/20 18:59 06:59 18:59 Intake Total 474 450 Output Total 300 Balance 474 150 Intake: IV 250 Oral 474 200 Output: Urine 300 Other: Voiding Method Toilet Toilet Urinal Urinal # Voids 2 2 - Exam -GENERAL: The patient is alert and oriented x3, not in any acute distress. Morbidly -Obese HEENT: Pupils are round and equally reacting to light. EOMI. No scleral icterus. No conjunctival pallor. Normocephalic, atraumatic. No pharyngeal erythema. No thyromegaly. CARDIOVASCULAR: S1 and S2 present. No murmurs, rubs, or gallops. PULMONARY: Chest is clear to auscultation, no wheezing or crackles. ABDOMEN: Soft, nontender, nondistended, normoactive bowel sounds. No palpable organomegaly. MUSCULOSKELETAL: No joint swelling or deformity. EXTREMITIES: No cyanosis, clubbing, or pedal edema. NEUROLOGICAL: Gross neurological examination did not reveal any focal deficits. SKIN: No rashes. no petechiae. - Labs CBC & Chem 7: 11/27/20 07:30 11/29/20 04:52 Labs: Abnormal Lab Results - Last 24 Hours (Table) 11/29/20 Range/Units 04:52 Carbon Dioxide 33.3 H (21.6-31.8) mmol/L Calcium 8.6 L (8.7-10.3) mg/dL Assessment and Plan Assessment: Syncope, related to his sleep apnea EKG changes, patient is going for cardiac cath Acute hypoxic respiratory failure, rule out hypercapnic failure, obstructive sleep apnea or obesity hypoventilation syndrome Morbid obesity with BMI of 44.3 Fall with trauma to the left lower quadrant of the abdomen Hypertension Plan: This is a pleasant 55 years old male who presents with syncope. Rule out cardiac causes. Cardiology team were consulted, continue with baby aspirin. Continue lisinopril. Follow-up cardiac cath Patient will need close outpatient pulmonary follow-up for sleep study Labs and medication were reviewed.. Continue same treatment. Continue with symptomatic treatment. Resume home medication. Monitor lytes and vitals. DVT and GI prophylaxis. Further recommendations as per clinical course of the patient DVT prophylaxis: Subcutaneous heparin GI Prophylaxis: Pepcid PT/OT: Pending
[2020-11-30] MEDS: lisinopriL 10 MG TAB PO SCH (07:45)
[2020-11-30] MEDS: FAMOTIDINE 20 MG TAB PO SCH (07:45)
[2020-11-30] MEDS: HEPARIN SODIUM,PORCINE/PF 5,000 UNIT/0.5 ML SYRINGE SQ SCH (07:46)
[2020-11-30] MEDS: HYDROcodone/APAP 5-325MG 1 EACH TAB PO PRN (07:46)
[2020-11-30] MEDS: ASPIRIN 81 MG PO SCH (07:46)
[2020-11-30 07:56] VITALS: PULSE 95
[2020-11-30] MEDS ORDERED: TRIAMTERENE-HCTZ 37.5-25MG 1 EACH TAB PO SCH (10:30)
[2020-11-30] MEDS ORDERED: LORATADINE 10 MG TAB PO STA (10:55)
[2020-11-30 11:03] VITALS: RESP 16
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
--- NOTE | 2020-11-30 12:00 | P.PN ---
Subjective Patient is resting comfortably in a chair His blood pressure is still elevated 160/81 mmHg Pulse rate in the 90s Temperature 99.2 Pulse ox 91% room room air Heart sounds S1 and S2 are soft Abdomen is obese Lungs degrees breath sounds bilaterally Morbid obesity noted Impression Patient presented with a syncopal spell 2-D echo shows moderate LVH with preserved LV systolic function EF rhythm 55% Right ventricle is enlarged Biatrial enlargement Mild mitral regurgitation Normal RVSP Normal coronary arteries Elevated LVEDP of 20 mmHg Obstructive sleep apnea Morbid obesity Plan Continue lisinopril 10 mg twice daily Add triamterene-hydrochloro thiazide 37.5/25 mg by mouth daily Low salt diet Weight loss Dietary consult for weight loss and low-salt diet Sleep apnea assessment and treatment I'll see him again in about 3 weeks At that time I may switch to valsartan and if needed further increase the dose of his diuretic antihypertensive Continue statins Stop clonidine Stop voltarin Continue atorvastatin 20 mg by mouth daily Stop asa Objective - Vital Signs Vital signs: Vital Signs Temp 99.2 F 11/30/20 07:00 Pulse 95 11/30/20 07:00 Resp 16 11/30/20 08:00 BP 190/74 11/30/20 07:00 Pulse Ox 96 11/30/20 07:00 Intake & Output 11/29/20 11/30/20 11/30/20 18:59 06:59 18:59 Intake Total 750 236 Output Total 600 Balance 150 236 Intake: IV 550 Sodium Chloride 0.9% 1, 300 000 ml @ 75 mls/hr IV . [id number] [facility] Rx#:[id number] Oral 200 236 Output: Urine 600 Other: Voiding Method Urinal Urinal # Voids 2 - Labs CBC & Chem 7: 11/27/20 07:30 11/29/20 04:52 Labs: Abnormal Lab Results - Last 24 Hours (Table) 11/29/20 Range/Units 04:52 Carbon Dioxide 33.3 H (21.6-31.8) mmol/L Calcium 8.6 L (8.7-10.3) mg/dL
[2020-11-30] MEDS ORDERED: amLODIPine 5 MG TAB PO SCH (12:30)
[2020-11-30] MEDS ORDERED: CEPHALEXIN 500 MG CAP PO SCH (13:00)
[2020-11-30 13:23] VITALS: BMI 44.3
[2020-11-30 13:32] VITALS: BP 138/83; TEMP 98.6
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
== END 2020-11-30 14:40 | disposition home or self-care (01) | DRG 205 ==
LOC: EC 13:57 → 6NMEDSUR 17:21 → OBSVTOIN 11-28 23:19
PROVIDERS: ADMIT Internal Medicine; ATTEND Internal Medicine
PROC: B2111ZZ Fluoroscopy of Multiple Coronary Arteries using Low Osmolar Contrast (ICD-10-PCS; principal; 2020-11-29 10:30)
PROC: 4A023N7 Measurement of Cardiac Sampling and Pressure, Left Heart, Percutaneous Approach (ICD-10-PCS; principal; 2020-11-29 10:30)
DX: E66.2 Morbid (severe) obesity with alveolar hypoventilation (principal); J96.01 Acute respiratory failure with hypoxia; J96.22 Acute and chronic respiratory failure with hypercapnia; Z68.41 Body mass index [BMI] 40.0-44.9, adult; E87.4 Mixed disorder of acid-base balance; L03.311 Cellulitis of abdominal wall; Z20.822 Contact with and (suspected) exposure to COVID-19; I11.9 Hypertensive heart disease without heart failure; I34.0 Nonrheumatic mitral (valve) insufficiency; I45.10 Unspecified right bundle-branch block; F41.9 Anxiety disorder, unspecified; K42.9 Umbilical hernia without obstruction or gangrene; S30.811A Abrasion of abdominal wall, initial encounter; M19.90 Unspecified osteoarthritis, unspecified site; Z79.899 Other long term (current) drug therapy; Z87.891 Personal history of nicotine dependence; Z87.39 Personal history of other diseases of the musculoskeletal system and connective tissue; Z98.890 Other specified postprocedural states; Z71.3 Dietary counseling and surveillance; W01.0XXA Fall on same level from slipping, tripping and stumbling without subsequent striking against object, initial encounter
CPT/HCPCS: 36415; 36600; 71046; 74177; 80048; 80053; 80061; 81003; 82805; 83036; 84443; 84484; 85025; 85610; 85730; 87635; 93005; 93306; 93458; 94660; 94760; 96361; 96374; 99285

== ENCOUNTER → 2021-04-03 | Outpatient (CLI) | payer BC ==
--- NOTE | 2021-04-03 20:39 | SFUN ---
SLEEP CENTER FOLLOW UP NOTE DATE OF SERVICE: 04/03/2021 55-year-old gentleman has been followed in Sleep Center for treatment of obstructive sleep apnea-hypopnea syndrome. Recently the patient had sleep studies, which showed extremely severe obstructive sleep apnea-hypopnea syndrome with some central events during the home test. Apnea-hypopnea index 149.6 with oxygen desaturation to 51%, and breathing was improved during CPAP/ BiPAP titration. Today is his first visit with his BiPAP machine. The patient feels significantly better with BiPAP treatment. He feels better during the day. He sleeps better during the night. [place] Sleepiness Scale is 3. During consultation, his [place] Sleepiness Scale was 18. I checked BiPAP unit. Maximal inspiratory pressure 22, minimal expiratory pressure 12 as it was prescribed. Average pressure 19.6/15.8, pressure support 4, usage is 21 out of 30 nights more than 4 hours. Leak is 1 L/minute. Apnea-hypopnea index 2.7, which is totally normal. PHYSICAL EXAMINATION: GENERAL: Patient in no distress. BP 120/75, HR 97, RR 18, weight 292.4, temperature 97.5, oxygen saturation at room air 97%. Oropharynx extremely low position of soft palate, Mallampati IV. NECK: Supple, no JVD. Thyroid is not palpable. LUNGS: Clear to percussion and to auscultation. Good air exchange. No wheezing or rhonchi. HEART: S1, S2 regular. No murmurs, gallops, or rubs. ABDOMEN: Obese. Soft and nontender. Bowel sounds are present. No organomegaly appreciated. EXTREMITIES: No clubbing or cyanosis. JIGSAW OPERATOR: Awake, alert, and oriented X3. Cranial nerves 2 to 7 intact. There is no fasciculation or atrophy. noted. No focal deficits observed. IMPRESSION: 1. Extremely severe obstructive sleep apnea-hypopnea syndrome, apnea-hypopnea index 149.6 with extremely severe oxygen desaturation to 51%. Respiration on control with BiPAP. The patient demonstrated borderline compliance with treatment benefitting from treatment. 2. Obesity, body mass index 42.9. 3. History of episodes of depression and anxiety. 4. Right hand arthritis. 5. Acid reflux. 6. History of hyperthyroidism. 7. Status post surgery on right hand for carpal tunnel syndrome. PLAN: 1. Patient promised to use machine every night for the whole night. 2. Patient will continue to use PAP equipment every night for the whole night. 3. Sleep hygiene with regular time in bed for at least 7-1/2 to 8 hours. 4. Precautions related to driving. No driving if feeling sleepiness. 5. I will maintain all necessary prescription for PAP supplies including mask, tube, filters. 6. Watching weight. 7. Follow-up visit in 6 months or earlier if patient has any problems. Thank you very much for allowing me to participate in management of your patient. Sincerely, Sonu Giraldo MD, PhD, FAASM Diplomat of [employer] Sleep Medicine Board of [employer] Job Honer of [facility] [place] MMODL / IJN: [id number] /
== END ==
LOC: SLEEP 14:52
PROVIDERS: ATTEND Internal Medicine
DX: G47.33 Obstructive sleep apnea (adult) (pediatric) (principal); G47.36 Sleep related hypoventilation in conditions classified elsewhere; E66.9 Obesity, unspecified; M19.041 Primary osteoarthritis, right hand; F32.9 Major depressive disorder, single episode, unspecified; K21.9 Gastro-esophageal reflux disease without esophagitis; E03.9 Hypothyroidism, unspecified; Z68.41 Body mass index [BMI] 40.0-44.9, adult; Z99.89 Dependence on other enabling machines and devices; Z98.890 Other specified postprocedural states

== ENCOUNTER → 2021-10-02 | Outpatient (CLI) | payer BC ==
--- NOTE | 2021-10-02 17:37 | SFUN ---
SLEEP CENTER FOLLOW UP NOTE DATE OF SERVICE: 10/02/2021 This 56-year-old gentleman has been followed in Sleep Center for treatment of obstructive sleep apnea-hypopnea syndrome. The patient continues to use his BiPAP equipment every night for the whole night, getting his supplies on time. [place] Sleepiness Scale is 6, which is normal. I checked his BiPAP unit. Maximal inspiratory pressure is 22, minimal expiratory pressure 12, pressure support 4, average pressure 17.4/13.4 cm of water. Usage is 29/30 nights for more than 4 hours, average 7.5 hours per night; great compliance. Leak is high at 60 L/minute. Patient has a mejia. Apnea-hypopnea index is only 1.1, which is perfect. MEDICATIONS: 1. Baclofen 10 mg once a day. 2. Lisinopril 10 mg once a day. PHYSICAL EXAMINATION: GENERAL: Pleasant patient in no distress. VITAL SIGNS: BP 127/73, HR 83, RR 18, weight 299.2, temperature 97.3, oxygen saturation 95%. HEENT: PERRLA, EOMI, evaluation of oropharynx showed tongue protrudes midline. Extremely low position of soft palate; Mallampati IV. NECK: Supple, no JVD. Thyroid is not palpable. LUNGS: Clear to percussion and to auscultation. Good air exchange. No wheezing or rhonchi. HEART: S1, S2 regular. No murmurs, gallops, or rubs. ABDOMEN: Obese. EXTREMITIES: No clubbing or cyanosis. TELECOMMUNICATIONS NETWORK PLANNER: Awake, alert, and oriented X3. Cranial nerves 2 to 7 intact. There is no fasciculation or atrophy. noted. No focal deficits observed. IMPRESSION: 1. Extremely severe obstructive sleep apnea-hypopnea syndrome. Original apnea- hypopnea index 149.6. The patient demonstrated practically 100% compliance with treatment. Totally normal respiration on BiPAP, benefitting from treatment. Leak from the mask is possibly related to his mejia. Patient is going to shave the mejia soon. 2. Obesity. Patient's weight increased by 7 pounds. 3. History of episodes of depression and anxiety. 4. Acid reflux. 5. Right hand arthritis. 6. History of hyperthyroidism. 7. Status post surgery on right hand for carpal tunnel syndrome. PLAN: 1. Patient will continue to use PAP equipment every night for the whole night. 2. Sleep hygiene with regular time in bed for at least 7-1/2 to 8 hours. 3. Precautions related to driving. No driving if feeling sleepiness. 4. I will maintain all necessary prescription for PAP supplies including mask, tube, filters. 5. Watching weight. 6. Follow-up visit in 6 months or earlier if patient has any problems. Thank you very much for allowing me to participate in the management of your patient. Sincerely, Sonu Giraldo MD, PhD, FAASM Diplomat of [place] [employer] Sleep Medicine Board of [place] [employer] Lemon Grower of [facility] [place] MMODL / VANN: [id number] /
== END ==
LOC: SLEEP 14:58
PROVIDERS: ATTEND Internal Medicine
DX: G47.33 Obstructive sleep apnea (adult) (pediatric) (principal); E66.9 Obesity, unspecified; F32.A Depression, unspecified; F41.9 Anxiety disorder, unspecified; K21.9 Gastro-esophageal reflux disease without esophagitis; Z99.89 Dependence on other enabling machines and devices; Z98.890 Other specified postprocedural states; Z87.39 Personal history of other diseases of the musculoskeletal system and connective tissue; Z86.39 Personal history of other endocrine, nutritional and metabolic disease

== ENCOUNTER → 2022-03-26 | Outpatient (CLI) | payer BC | END | disposition home or self-care (01) | LOC: LABWHC1 14:12 | PROVIDERS: ATTEND Internal Medicine | DX: R73.9 Hyperglycemia, unspecified (principal) | CPT/HCPCS: 36415; 82947; 83036 ==

== ENCOUNTER → 2022-04-23 | Outpatient (CLI) | payer BC ==
--- NOTE | 2022-04-23 16:57 | P.PN ---
Subjective DATE: 04/23/2022 FOLLOW UP VISIT. Patient with obstructive sleep apnea hypopnea syndrome return to sleep center for follow-up visit. Information from previous visit have been reviewed. Patient is using PAP equipment every night for the whole night, getting BPAP supplies in time. The patient has some discomfort related to the mask. He is using full face mask and leak from the upper parts from the mask which goes over the bridge of the nose may leak to the eye area. [place] sleepiness scale is 3. I checked BPAP unit. BPAP unit pressure maximal inspiratory pressure 22, minimal expiratory pressure 12, pressure-support 4, average pressure 17.5 over 13.5 cm H2O. Usage is 100 % for more then 4 hours, average 8.1 hours per night. Leak is increased to 49 l/m. Apnea Hypopnea Index is 0.6, which is normal. MEDICATIONS:1. Lipitor 2. Zestril During physical exam: GENERAL: A pleasant patient without any distress. VITAL SIGNS: BP 155/94, HR 105, RR 18, weight 305.2, temperature 98.1, oxygen saturation at room air 96 % . HEENT: PERRLA, EOMI.low position of soft palate, Mallapati 4 . NECK: Supple. No JVD. LUNGS: Clear to percussion and to auscultation. Good air exchange. No wheezing or rhonchi. HEART: S1, S2 regular. ABDOMEN: Soft and nontender. Obese EXTREMITIES: No clubbing or cyanosis. LADDERMAN: Awake, alert, and oriented x3. No focal deficit. Impressions: 1. Obstructive sleep apnea-hypopnea syndrome. Patient demonstrated great compliance with treatment, benefiting from treatment. Patient has discomfort with the full face mask which goes over the bridge of his nose. 2. Obesity. 3. Hypertension and office. 4. History of episodes of depression and anxiety. 5. Acid reflux. 6. Right hand arthritis. 7. Status post right hand surgery for carpal tunnel syndrome. Plan: 1. Continue using PAP equipment every night for the whole night. Patient will try different style of full face mask [place] which goes under the nose. 2. To change air filter at least 1-2 times per month. 3. PAP unit should stay lower then position of the head. 4. Advised patient to remove all remaining water from humidifier canister daily and make it dry after each usage. Refill canister with fresh distilled water before each usage. 5. Sleep hygiene with regular time in bed for at least 8 hours. 6. Precautions related to driving. No driving if feel any sleepiness. 7. I will maintain prescription for PAP supplies including mask, tube, filters. 8. Follow up visit in 6 months or earlier if patient has any problems. 9. Watching and losing weight. Thank you very much for allowing me to participate in the management of your patient. Sonu Giraldo MD, PhD, FAASM. Diplomat of [place] [employer], Sleep Medicine Board by [place] [employer] Equipment Repairer of [facility] [place]
--- NOTE | 2022-04-23 17:26 | P.PN ---
Subjective DATE: 04/23/2022 FOLLOW UP VISIT. Patient with obstructive sleep apnea hypopnea syndrome return to sleep center for follow-up visit. Information from previous visit have been reviewed. This is first visit after patient received his CPAP unit. I discussed with patient results of previous sleep studies in details. Diagnostic polysomnogram showed severe sleep apnea with apnea-hypopnea index 33.6. Patient is using PAP equipment every night. The patient does not have significant problems with the mask, PAP unit and humidification. Sometimes he wakes up in the middle of the night and feels that pressure is too high [place] sleepiness scale is 10, which is borderline. I checked PAP unit. PAP unit pressure 5-15, average 13.7 cm H2O. Usage is 90 % and about the 60% for more then 4 hours, average for hours per night. Leak is 16 l/m, which is in acceptable range. Apnea Hypopnea Index is 7.7, which is slightly above normal. MEDICATIONS: None During physical exam: GENERAL: A pleasant patient without any distress. VITAL SIGNS: BP 131/87, HR 73, RR 16 , weight 257.2, temperature 97.1, oxygen saturation at room air 95 % . HEENT: PERRLA, EOMI.low position of soft palate, Mallapati 3-4 . NECK: Supple. No JVD. LUNGS: Clear to percussion and to auscultation. Good air exchange. No wheezing or rhonchi. HEART: S1, S2 regular. ABDOMEN: Soft and nontender. Obese EXTREMITIES: No clubbing or cyanosis. DIGITAL PUBLISHING SPECIALIST: Awake, alert, and oriented x3. No focal deficit. Impressions: 1. Obstructive sleep apnea-hypopnea syndrome. Patient demonstrated borderline compliance with treatment, benefiting from treatment. Sometimes he feels that pressure is too high when he wakes up in the middle of the night. 2. Obesity. 3. Hyperlipidemia. 4. Restless leg symptoms. 5. Severe periodic limb movements by results of sleep test, no complaints of leg movements. Plan: 1. Continue using PAP equipment every night for the whole night. I changed regimen of the machine to Auto ramp. 2. To change air filter at least 1-2 times per month. 3. PAP unit should stay lower then position of the head. 4. Advised patient to remove all remaining water from humidifier canister daily and make it dry after each usage. Refill canister with fresh distilled water before each usage. 5. Sleep hygiene with regular time in bed for at least 8 hours. 6. Precautions related to driving. No driving if feel any sleepiness. 7. I will maintain prescription for PAP supplies including mask, tube, filters. 8. Follow up visit in 6 months or earlier if patient has any problems. 9. Watching and losing weight. Thank you very much for allowing me to participate in the management of your patient. Sonu Giraldo MD, PhD, FAASM. Diplomat of [place] [employer], Sleep Medicine Board by [employer] Residential Substance Abuse Counselor of [facility] [place]
== END ==
LOC: SLEEP 16:02
PROVIDERS: ATTEND Internal Medicine
DX: G47.33 Obstructive sleep apnea (adult) (pediatric) (principal); E78.5 Hyperlipidemia, unspecified; G25.81 Restless legs syndrome; Z99.89 Dependence on other enabling machines and devices; G47.61 Periodic limb movement disorder

== ENCOUNTER → 2022-12-17 | Outpatient (CLI) | payer BC ==
--- NOTE | 2022-12-17 16:30 | P.PN ---
Subjective DATE: 12/17/2022 FOLLOW UP VISIT. Patient with obstructive sleep apnea hypopnea syndrome return to sleep center for follow-up visit. Information from previous visit have been reviewed. Patient is using PAP equipment every night for the whole night, getting PAP supplies in time. The patient does not have significant problems with the mask, PAP unit and humidification. [place] sleepiness scale is 4, which is normal. I checked information from PAP unit. PAP unit pressure maximal inspiratory pressure 22, minimal inspiratory pressure 12, pressure-support 4, average pressure 17.5 over 13.5 cm H2O. Usage is 100 % for more then 4 hours, average 6.7 hours per night. Apnea Hypopnea Index is 0.6, which is normal. MEDICATIONS:1. Atorvastatin 20 mg once a day 2. Lisinopril 10 mg once a day 3. Hydrochlorothiazide 25 mg once a day 4. Cyclobenzoprine 10 mg once a day During physical exam: GENERAL: A pleasant patient without any distress. VITAL SIGNS: BP 133/78, HR 102, RR 18, weight 297.8, temperature 98.0, oxygen saturation at room air 94 % . HEENT: PERRLA, EOMI.low position of soft palate, Mallapati 4 . NECK: Supple. No JVD. LUNGS: Clear to percussion and to auscultation. Good air exchange. No wheezing or rhonchi. HEART: S1, S2 regular. ABDOMEN: Soft and nontender. Obese EXTREMITIES: No clubbing or cyanosis. GREASE REFINING SUPERVISOR: Awake, alert, and oriented x3. No focal deficit. Impressions: 1. Obstructive sleep apnea-hypopnea syndrome. Patient demonstrated great compliance with treatment, benefiting from treatment. 2. Obesity patient lost 8 pounds since previous visit. 3. Hypertension. 4. Acid reflux. 5. History of episodes of anxiety and depression. Plan: 1. Continue using PAP equipment every night for the whole night. 2. To change air filter at least 1-2 times per month. 3. PAP unit should stay lower then position of the head. 4. Advised patient to remove all remaining water from humidifier canister daily and make it dry after each usage. Refill canister with fresh distilled water before each usage. 5. Sleep hygiene with regular time in bed for at least 8 hours. 6. Precautions related to driving. No driving if feel any sleepiness. 7. I will maintain prescription for PAP supplies including mask, tube, filters. 8. Follow up visit in 6 months or earlier if patient has any problems. 9. Watching and continue losing weight. Thank you very much for allowing me to participate in the management of your patient. Sonu Giraldo MD, PhD, FAASM. Diplomat of [employer], Sleep Medicine Board by [employer] Health Program Specialist of [facility] [place]
== END ==
LOC: 3 N SLEEP 15:54
PROVIDERS: ATTEND Internal Medicine
DX: G47.33 Obstructive sleep apnea (adult) (pediatric) (principal); E66.9 Obesity, unspecified; I10 Essential (primary) hypertension; K21.9 Gastro-esophageal reflux disease without esophagitis; Z79.899 Other long term (current) drug therapy; F41.8 Other specified anxiety disorders; Z99.89 Dependence on other enabling machines and devices
CPT/HCPCS: 99212

== ENCOUNTER → 2023-06-17 | Outpatient (CLI) | payer BC ==
--- NOTE | 2023-06-17 17:22 | P.PN ---
Subjective DATE: 06/17/2023 FOLLOW UP VISIT. Patient with obstructive sleep apnea hypopnea syndrome return to sleep center for follow-up visit. Information from previous visit have been reviewed. Patient is using PAP equipment every night for the whole night, getting PAP supplies in time. Patient reported that his BiPAP unit is noisy at the present time [place] sleepiness scale is 9, which is borderline. I checked information from BPAP unit. BPAP unit pressure maximal inspiratory pressure 22, minimal expiratory pressure 12, pressure-support 4, average pressure 16.5 for 12.5 cm H2O. Usage is 100 % for more then 4 hours, average 7.5 hours per night. Leak is 8 l/m, which is in acceptable range. Apnea Hypopnea Index is 0.5, which is normal. MEDICATIONS:1. Lisinopril 10 mg once a day 2. Atorvastatin 20 mg once a day 3. Hydrochlorothiazide 25 mg once a day 4. Cyclobenzaprine 10 mg once a day During physical exam: GENERAL: A pleasant patient without any distress. VITAL SIGNS: BP 118/66, HR 91, RR 16 , weight 284.6, temperature 97.9, oxygen saturation at room air 95 % . HEENT: PERRLA, EOMI.low position of soft palate, Mallapati 4 . NECK: Supple. No JVD. LUNGS: Clear to percussion and to auscultation. Good air exchange. No wheezing or rhonchi. HEART: S1, S2 regular. ABDOMEN: Soft and nontender.[] EXTREMITIES: No clubbing or cyanosis. RECEIVING LEAD: Awake, alert, and oriented x3. No focal deficit. Impressions: 1. Obstructive sleep apnea-hypopnea syndrome. Patient demonstrated great compliance with treatment, benefiting from treatment. BiPAP unit is noisy. 2. Hypertension. 3. Acid reflux. 4. History of anxiety and depression episodes. 5. Obesity, patient lost 13 pounds since previous visit. Plan: 1. Continue using PAP equipment every night for the whole night. Prescription to repair or replace BiPAP unit. 2. To change air filter at least 1-2 times per month. 3. PAP unit should stay lower then position of the head. 4. Advised patient to remove all remaining water from humidifier canister daily and make it dry after each usage. Refill canister with fresh distilled water before each usage. 5. Sleep hygiene with regular time in bed for at least 8 hours. 6. Precautions related to driving. No driving if feel any sleepiness. 7. I will maintain prescription for PAP supplies including mask, tube, filters. 8. Watching and continue losing weight. 9. Follow up visit after patient will get new BiPAP unit. Thank you very much for allowing me to participate in the management of your patient. Sonu Giraldo MD, PhD, FAASM. Diplomat of [employer], Sleep Medicine Board by [employer] Marine Equipment Test Engineer of [facility] [place]
== END ==
LOC: 3 N SLEEP 16:06
PROVIDERS: ATTEND Internal Medicine
DX: G47.33 Obstructive sleep apnea (adult) (pediatric) (principal); I10 Essential (primary) hypertension; K21.9 Gastro-esophageal reflux disease without esophagitis; F32.A Depression, unspecified; F41.9 Anxiety disorder, unspecified; E66.9 Obesity, unspecified; Z79.899 Other long term (current) drug therapy; Z99.89 Dependence on other enabling machines and devices
CPT/HCPCS: 99212

== ENCOUNTER → 2024-12-28 | Outpatient (CLI) | payer BC ==
[2024-12-28 16:41] VITALS: BP 133/73; PULSE 77; RESP 18; TEMP 97.9
--- NOTE | 2024-12-28 18:21 | P.PROGSL ---
Subjective DATE: 12/28/2024 FOLLOW UP VISIT. Patient with obstructive sleep apnea hypopnea syndrome return to sleep center for follow-up visit. Information from previous visit have been reviewed. Patient is using PAP equipment every night for the whole night, getting PAP supplies in time. The patient does not have significant problems with the mask, PAP unit and humidification. [place] sleepiness scale is 5, which is normal. I checked information from PAP unit. PAP unit pressure maximal inspiratory pressure 22, minimal expiratory pressure 12, pressure support 4, average pressure 16.2 or 12.2 cm H2O. Usage is 100% for more then 4 hours, average 5.5 hours per night. Leak is 31 l/m, which is in acceptable range. Apnea Hypopnea Index is 0.5, which is normal. MEDICATIONS have been reviewed, please see below. During physical exam: GENERAL: A pleasant patient without any distress. VITAL SIGNS: Please see below, weight is 264 lbs. HEENT: PERRLA, EOMI.low position of soft palate, Mallapati 4 . NECK: Supple. No JVD. LUNGS: Clear to percussion and to auscultation. Good air exchange. No wheezing or rhonchi. HEART: S1, S2 regular. ABDOMEN: Soft and nontender. Obese EXTREMITIES: No clubbing or cyanosis. OPERATION SHIFT SUPERVISOR: Awake, alert, and oriented x3. No focal deficit. Impressions: 1. Obstructive sleep apnea-hypopnea syndrome. Patient demonstrated great compliance with treatment, benefiting from treatment. 2. Obesity, BMI 41.1, patient lost 20 pounds comparing with previous visit. 3. Hypertension. 4. Acid reflux. 5. History of anxiety and depression episodes. Plan: 1. Continue using PAP equipment every night for the whole night. 2. Sleep hygiene with regular time in bed for at least 7.5-8 hours 3. PAP unit should stay lower then position of the head. 4. Advised patient to remove all remaining water from humidifier canister daily and make it dry after each usage. Refill canister with fresh distilled water before each usage. 5. Watching and continue losing weight. 6. Precautions related to driving. No driving if feel any sleepiness. 7. I will maintain prescription for PAP supplies including mask, tube, filters. 8. Follow up visit in 6 months or earlier if patient has any problems. Thank you very much for allowing me to participate in the management of your patient. Sonu Giraldo MD, PhD, FAASM. Diplomat of [place] [employer], Sleep Medicine Board by [employer] Bread Oven Operator of [facility] [place] Objective - Vital Signs Vital Signs: Vital Signs Temp 97.9 F 12/28/24 16:40 Pulse 77 12/28/24 16:40 Resp 18 12/28/24 16:40 BP 133/73 12/28/24 16:40 Pulse Ox 96 12/28/24 16:40 FiO2 Intake & Output 12/27/24 12/28/24 12/28/24 18:59 06:59 18:59 Weight 119.918 kg Home Medications: Home Medications Medication Instructions Recorded Confirmed Type Albuterol Inhaler [Ventolin Hfa 1 puff INHALATION TID PRN #1 bottle 11/30/20 Rx Inhaler] Atorvastatin [Lipitor] 20 mg PO DAILY #90 tablet 11/30/20 Rx Cephalexin [Keflex] 500 mg PO TID 7 Days #20 cap 11/30/20 Rx Famotidine [Pepcid] 20 mg PO BID #60 tab 11/30/20 Rx Triamterene/Hydrochlorothiazid 1 each PO DAILY #90 tablet 11/30/20 Rx [Triamterene-Hctz 37.5-25 mg Tb] lisinopriL [Prinivil] 10 mg PO BID #180 tablet 11/30/20 Rx
== END ==
LOC: 3 N SLEEP 15:56
PROVIDERS: ATTEND Internal Medicine
DX: G47.33 Obstructive sleep apnea (adult) (pediatric) (principal); E66.9 Obesity, unspecified; I10 Essential (primary) hypertension; K21.9 Gastro-esophageal reflux disease without esophagitis; F41.9 Anxiety disorder, unspecified; F32.A Depression, unspecified; Z68.41 Body mass index [BMI] 40.0-44.9, adult; Z99.89 Dependence on other enabling machines and devices
CPT/HCPCS: 99212